=== PATIENT | male | born 1975 | race Two or more races ===

== ENCOUNTER → 2024-08-29 | Emergency (ER) | payer OTHER ==
[~2024-08-29] VITALS: Ht 177.8 cm; Wt 87.5 kg
[~2024-08-29] MED LIST: ANTIBIOTICO; COZAAR25 MG PO; DOLOGEN CAPLET1 EACH PO; GUAIFENESIN/DEXTROMETHORPHAN 10ML BLIST.PACK PO ONE; KETOROLAC TROMETHAMINE 60 MG VIAL IM ONE; METFORMIN HCL1000 M2; OSEL75CA PO; OSELTAMIVIR PHOSPHATE 75 MG CAPSULE PO ONE; TUSNEL LIQUID178 ML PO
[2024-08-29 18:47] LABS: HEMOGLOBIN 13.9 g/dL (13-16.00); MEAN CELL VOLUME 80.6 fL (80.0-100.00); MEAN CORPUSCULAR HEMOGLOBIN 27.4 pg (27.00-32.0); MEAN CORPUSCULAR HGB CONC 33.9 g/dl (32.0-36.0); PLATELET COUNT 276 K/uL (150-450); RED BLOOD COUNT 5.08 M/uL (4.00-6.00); RED CELL DISTRIBUTION WIDTH 14.1 % (11.5-14.5)
== END | disposition home or self-care (01) ==
LOC: ER 17:45
PROVIDERS: General Practice
DX: J06.9 Acute upper respiratory infection, unspecified (principal); J00 Acute nasopharyngitis [common cold]; Z20.822 Contact with and (suspected) exposure to COVID-19